=== PATIENT | female | born 1980 | race African-American/Black ===

== ENCOUNTER 2019-02-25 06:19 | Emergency (ER) | payer OTHER, MEDICAID ==
--- NOTE | 2019-02-25 08:39 | RAD ---
PA AND LATERAL CHEST: Date: 02/25/19 HISTORY: Cough, flu-like symptoms. COMPARISON: 06/30/03 study. FINDINGS: The heart size is within normal limits. Mediastinal structures are unremarkable. Lungs are clear of i nfiltrates. No significant bony findings. IMPRESSION: No active intrathoracic disease. POS: [facility]
== END 2019-02-25 07:53 | disposition home or self-care (01) ==
LOC: ERS 06:19
DX: B34.9 Viral infection, unspecified (principal); F31.9 Bipolar disorder, unspecified; F20.9 Schizophrenia, unspecified; F17.210 Nicotine dependence, cigarettes, uncomplicated; Z71.6 Tobacco abuse counseling
CPT/HCPCS: 71046; 99406

== ENCOUNTER 2019-09-29 07:16 | Emergency (ER) | payer OTHER, MEDICAID | END 2019-09-29 08:15 | disposition home or self-care (01) | LOC: ERS 07:16 | DX: H65.93 Unspecified nonsuppurative otitis media, bilateral (principal); R73.03 Prediabetes; F31.9 Bipolar disorder, unspecified; F20.9 Schizophrenia, unspecified; F17.210 Nicotine dependence, cigarettes, uncomplicated; Z79.899 Other long term (current) drug therapy; Z79.84 Long term (current) use of oral hypoglycemic drugs | CPT/HCPCS: 99283 ==

== ENCOUNTER 2020-06-08 07:28 | Emergency (ER) | payer MEDICARE, OTHER | END 2020-06-08 09:34 | LOC: ERS 07:28 | DX: R63.1 Polydipsia (principal); F17.210 Nicotine dependence, cigarettes, uncomplicated | CPT/HCPCS: 36416; 99283 ==

== ENCOUNTER 2021-05-20 10:28 | Emergency (ER) | payer MEDICARE, OTHER ==
[2021-05-20] MEDS ORDERED: Lidocaine 1% PF 5 ML VIAL ONE (11:43)
== END 2021-05-20 12:07 | disposition home or self-care (01) ==
LOC: ERS 10:28
DX: L02.214 Cutaneous abscess of groin (principal); F17.210 Nicotine dependence, cigarettes, uncomplicated
CPT/HCPCS: 99282

== ENCOUNTER 2021-05-21 12:55 | Emergency (ER) | payer OTHER ==
[2021-05-21] MEDS ORDERED: Famotidine/PF 20 mg/2ml Vial ONE (13:10)
[2021-05-21] MEDS ORDERED: diphenhydrAMINE 50 MG/ML VIAL ONE (13:10)
[2021-05-21] MEDS ORDERED: predniSONE 20 MG TAB ONE (13:10)
== END 2021-05-21 15:05 | disposition home or self-care (01) ==
LOC: ERS 12:55
DX: T78.40XA Allergy, unspecified, initial encounter (principal); L03.314 Cellulitis of groin; F17.210 Nicotine dependence, cigarettes, uncomplicated
CPT/HCPCS: 96374; 96375; J1200; J7512; S0028

== ENCOUNTER 2021-12-18 08:14 | Emergency (ER) | payer OTHER ==
[2021-12-18] MEDS ORDERED: diphenhydrAMINE 25 MG CAP ONE (08:48)
== END 2021-12-18 09:09 | disposition home or self-care (01) ==
LOC: ERS 08:14
DX: T49.0X5A Adverse effect of local antifungal, anti-infective and anti-inflammatory drugs, initial encounter (principal); R21 Rash and other nonspecific skin eruption; E10.9 Type 1 diabetes mellitus without complications; F17.200 Nicotine dependence, unspecified, uncomplicated; Z79.4 Long term (current) use of insulin; Z79.899 Other long term (current) drug therapy
CPT/HCPCS: 99283

== ENCOUNTER 2022-02-07 11:41 | Emergency (ER) | payer OTHER | END 2022-02-07 12:08 | disposition home or self-care (01) | LOC: ERS 11:41 | DX: Z20.822 Contact with and (suspected) exposure to COVID-19 (principal) | CPT/HCPCS: U0003; U0005; 99283 ==